=== PATIENT | female | born 1970 | race Caucasian/White ===

== ENCOUNTER 2020-11-05 18:43 | Emergency (ER) | payer OTHER ==
[2020-11-05 18:55] VITALS: BP 139/91; PULSE 78; TEMP 98.6; BMI 39.4
== END 2020-11-05 18:55 | disposition home or self-care (01) ==
LOC: FER 18:43
DX: H92.01 Otalgia, right ear (principal)
CPT/HCPCS: 99283-25

== ENCOUNTER 2021-03-02 14:32 | Emergency (ER) | payer BC, OTHER ==
[2021-03-02 14:38] VITALS: BP 134/80; PULSE 80; TEMP 98.2; BMI 36.8
[2021-03-02] MEDS ORDERED: IBUPROFEN 400 MG TABLET (FP) PO ONE ×2 (15:05→15:10)
[2021-03-02] MEDS ORDERED: CLINDAMYCIN HCL 150 MG CAPSULE (FP) PO ONE (15:23)
[2021-03-02] MEDS ORDERED: CLINDAMYCIN HCL 150 MG CAPSULE (FP) ONE (15:23)
== END 2021-03-02 15:33 | disposition home or self-care (01) ==
LOC: FER 14:32
DX: J02.9 Acute pharyngitis, unspecified (principal)
CPT/HCPCS: 99283-25